=== PATIENT | male | born 1990 | race Hispanic/Latino ===

== ENCOUNTER 2021-12-09 06:40 | Day surgery (SDC) | payer OTHER ==
--- NOTE | 2021-12-09 07:35 | RAD REPORT ---
EXAM DESCRIPTION: CT - Head C Spine Mpr Wo Con - 12/09/2021 7:10 am CLINICAL HISTORY: Head and neck injury status post trauma. Head and neck pain COMPARISON: None. TECHNIQUE: Computed axial tomography of the head and cervical spine was obtained. Sagittal and coronal reconstruction was performed. All CT scans are performed using dose optimization technique as appropriate and may include automated exposure control or mA/KV adjustment according to patient size. FINDINGS: Hematoma surrounds the left ear. No fluid within the left mastoids or external auditory ca nal. . Air is seen within the soft tissues secondary to laceration. An intracranial bleed is not seen. The ventricles are normal in caliber. An extra-axial fluid collect ion is not noted.Fluid within the visualized sinuses and mastoids is not seen A cervical fracture is not visualized. No dislocation is noted. IMPRESSION: No acute intracranial abnormality is seen. A cervical fracture is not visualized. If the patient continues to have symptoms to suggest intracra nial /spinal cord pathology then MRI would be recommended
[2021-12-09] MEDS ORDERED: TETANUS & DIPHTHERIA TOX,ADULT 0.5 ML VIAL ONE (07:47)
[2021-12-09] MEDS ORDERED: NA CHLORIDE 0.9% 500 ML ONE (07:47)
[2021-12-09] MEDS ORDERED: CEFAZOLIN 2 GM IN 0.9% NACL 2 GM/100 ML BAG IV ONE (08:00)
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
[2021-12-09 08:20] LABS: Absolute Lymphocytes (CBC) 1.3 K/uL (0.7-4.9); Hematocrit 41.4 % (39.6-49.0); Lymphocytes % 12.2 % (15.3-44.8); MCV 85.4 fL (80-100); MPV 8.6 fL (7.6-11.3); RBC Red Blood Cell Count 4.85 M/uL (4.33-5.43)
[2021-12-09 08:23] LABS: Potassium 4.1 mmol/L (3.5-5.1)
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
--- NOTE | 2021-12-09 08:43 | RAD REPORT ---
EXAM DESCRIPTION: Mary Single View12/09/2021 8:38 am CLINICAL HISTORY: Cough COMPARISON: none FINDINGS: The lungs appear clear of acute infiltrate. The heart is normal size IMPRESSION: No acute abnormalities displayed
[2021-12-09] MEDS ORDERED: NA CHLORIDE 0.9% 1,000 ML ONE (08:49)
[2021-12-09 09:31] LABS: Protime INR 1.02
[2021-12-09 09:47] LABS: SARS-CoV-2 Antigen Rapid Res Negative (Negative)
[2021-12-09] MEDS ORDERED: MORPHINE 4 MG/ML SYR ONE (09:49)
[2021-12-09] MEDS ORDERED: ONDANSETRON 4 MG/2 ML VIAL ONE ×2 (09:49→13:13)
[2021-12-09] MEDS ORDERED: BUPIVACAINE 0.5% PF 10 ML VIAL ONE (10:53)
[2021-12-09] MEDS ORDERED: BACITRACIN OINTMENT 14 GM TUBE TOP ONE (10:53)
[2021-12-09] MEDS ORDERED: LIDOCAINE 1% W/EPI 1:100,000 10 ML VIAL ONE (10:53)
[2021-12-09] MEDS ORDERED: ONDANSETRON 4 MG/2 ML VIAL IV PRN (11:10)
[2021-12-09] MEDS ORDERED: ACETAMINOPHEN 500 MG TAB PO PRN (11:10)
[2021-12-09] MEDS ORDERED: MORPHINE 4 MG/ML SYR IV PRN (11:10)
[2021-12-09] MEDS ORDERED: NA CHLORIDE 0.9% 1,000 ML IV SCH (11:10)
[2021-12-09] MEDS ORDERED: FENTANYL CITR 100 MCG/2 ML ONE ×2 (11:55→12:36)
[2021-12-09] MEDS ORDERED: MIDAZOLAM HCL 2 MG/2 ML INJ ONE (11:55)
[2021-12-09] MEDS ORDERED: propofoL 200 MG/20 ML VIAL IV ONE (11:55)
[2021-12-09] MEDS ORDERED: LIDOCAINE 1% MPF 5 ML VIAL ONE (11:55)
[2021-12-09] MEDS ORDERED: CEFAZOLIN 1 GM in NA CHLORIDE 0.9% 50 ML IVPB SCH (12:00)
[2021-12-09] MEDS ORDERED: LIDOCAINE 1% W/EPI 1:100,000 10 ML VIAL IJ ONE (12:30)
[2021-12-09] MEDS ORDERED: BUPIVACAINE 0.5% PF 10 ML VIAL SQ ONE (13:00)
[2021-12-09] MEDS ORDERED: KETOROLAC 30 MG/ML INJ ONE (13:14)
--- NOTE | 2021-12-09 13:26 | P.OP ---
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 The head was turned towards the right for exposure of the left ear. The dressing placed by the ER was removed and the area examined. 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 The area was cleaned with Betadine and draped in a sterile fashion. The skin around the laceration was injected with 1% lidocaine with epinephrine to aid in control of bleed/oozing and to aid in plane of anesthesia. There was an area of bleeding from a small to moderate vessel at the upper port ion of the laceration on the scalp which was clamped and ligated with silk suture. Clot and blood was removed from the wound cavity using suction and forceps. The deeper tissues including cartilage of the ear canal with closed with a 4-0 Vicyl suture at the posterior and anterior wall. The tragus and helix was then reattached in anatomic position to the scalp. The edges of the anterior aspect of the wound were freshened with scalpel to remove rough edges. The operating microscope was then brought to the field. The laceration was limited to the meatus with circumferential complete avulsion but the deeper canal was not involved. Clot, blood and cerumen were suctioned from the canal. The tympanic membrane remained intact without apparent injury. The posterior meatus from 12 to 3 to 6 oclock was then suture with 5-0 plain gut suture in a running fashion with good skin edge approximation. The anterior aspect was difficult to close due to the angle and was left open to heal by secondary intent. The pre-auricular skin was then closed in a running fashion using 5-0 pain gut sutures. There was a stellate area of the lacteration extending toward the reji at the superior most aspect of the tragus. The suture was tied and cut at this location and the stellate portion closed with running sutures, then extending around the root of the helix and to the superor attachment of the pinna. The canal was then re-examined. A portion of Xeroform gauze was cut and rolled in to a earplug like shape and used to pack and stent the meatus with goal to decrease risk of meatal stenosis. The area around the ear was then injected with 0.5% bupivicaine to aid in post- operative pain control. The skin of the ear, face, scalp and neck were cleaned with sterile saline. A xeroform was applied to the external ear. Gauze and coban were used to apply a pressure dressing to the left ear. All counts were reported as correct. The patient was returned to care of anesthesia for awakening and extubation in the OR which proceeded without difficulty. Complications: None Implants: None Transferred to: Recovery Room Condition: Good
[2021-12-09] MEDS: FENTANYL CITR 100 MCG/2 ML ONE ×2 (13:37→13:42)
[2021-12-09 14:59] VITALS: TEMP 97.2
--- NOTE | 2021-12-10 13:40 | EKG ---
Test Date: 2021-12-09 Test Time: 09:04:57 [employer]ipe [employer] Pipe: JONATHAN MEASUREMENT RESULTS: Intervals: Rate: 63 CA: 162 QRSD: 84 QT: 432 QTc: 442 [place]: P: 29 CA: 162 QRS: 50 T: 25 INTERPRETIVE STATEMENTS: Normal sinus rhythm with sinus arrhythmia Low voltage QRS Borderline ECG No previous ECG available for comparison Electronically Signed On 12-10-21 13:38:22 CDT by Guicho Pearson
[2021-12-10 17:52] VITALS: BP 129/82; O2SAT 99
== END 2021-12-09 14:52 | disposition home or self-care (01) ==
LOC: ER 06:40 → DS 08:09
PROVIDERS: ATTEND Otolaryngology
PROC: 09Q1XZZ Repair Left External Ear, External Approach (ICD-10-PCS; principal; 2021-12-09 12:00)
DX: S01.312A Laceration without foreign body of left ear, initial encounter (principal); S01.01XA Laceration without foreign body of scalp, initial encounter; Z20.822 Contact with and (suspected) exposure to COVID-19
CPT/HCPCS: 36415; 70450; 71045; 72125; 80048; 85025; 85610; 87811; 90471; 90714; 93005; 96361; 96365; 96375; 99285; J0690; J2001; J2250; J2405; J2704; J3010; J7030; J7040